=== PATIENT | male | born 1995 | race Caucasian/White ===

== ENCOUNTER 2017-08-08 16:13 | Emergency (ER) | payer SELFPAY ==
[2017-08-08 16:30] VITALS: RESP 16; TEMP 98; O2SAT 99
[2017-08-08] MEDS ORDERED: DIAZEPAM 5MG/ML SOL IM ONE (16:36)
[2017-08-08] MEDS ORDERED: KETOROLAC TROMETHAMINE 30 MG/ML SOL IM ONE (16:36)
[2017-08-08] MEDS ORDERED: KETOROLAC TROMETHAMINE 30 MG/ML SOL ONE (16:39)
[2017-08-08] MEDS ORDERED: CYCLOBENZAPRINE 10 MG TAB ONE (16:39)
[2017-08-08] MEDS ORDERED: CYCLOBENZAPRINE 10 MG TAB PO ONE (16:46)
[2017-08-08 19:44] VITALS: BP 132/90; PULSE 68
== END 2017-08-08 18:25 | disposition home or self-care (01) | DRG 563 ==
LOC: ED 16:13
DX: S39.012A Strain of muscle, fascia and tendon of lower back, initial encounter (principal); X50.0XXA Overexertion from strenuous movement or load, initial encounter
CPT/HCPCS: 72131; 99283; J1885

== ENCOUNTER 2017-08-11 | Emergency (ER) | payer SELFPAY ==
[2017-08-11] MEDS ORDERED: LORAZEPAM 0.5 MG TAB PO ONE ×3 (00:37→03:46)
[2017-08-11] MEDS ORDERED: LORAZEPAM 0.5 MG TAB ONE ×3 (00:40→03:47)
[2017-08-11 01:45] LABS: APPEARANCE,URINE Clear; BILIRUBIN,URINE NEGATIVE (NEGATIVE); COLOR,URINE Light yellow; GLUCOSE, URINE (UA) NEGATIVE (NEGATIVE); KETONES,URINE TRACE (NEGATIVE); LEUKOCYTE ESTERASE ,URINE TRACE (NEGATIVE); NITRATE,URINE NEGATIVE (NEGATIVE); OCCULT BLOOD,URINE NEGATIVE (NEG-TRACE); PH,URINE 5.5; UROBILINOGEN,URINE 0.2 (0.2-1.0 EU)
[2017-08-11 01:51] VITALS: BP 122/62; PULSE 122; RESP 18; O2SAT 96
[2017-08-11 01:54] LABS: HEMATOCRIT 49 % (39-53); MEAN CORPUSCULAR HGB CONC 35.5 gm/dl (32.0-36.0); MEAN CORPUSCULAR VOLUME 90 fL (80-100)
[2017-08-11 01:58] LABS: ALBUMIN 4.6 gm/dl (3.4-5.0); CALCIUM 9.1 mg/dl (8.5-10.1); POTASSIUM 4.5 mMol/L (3.5-5.1); THYROID STIMULATING HORMONE 2.002 uIU/ml (0.358-3.740)
[2017-08-11 02:03] LABS: BASOPHILS % (MANUAL) 0 % (0-3); EOSINOPHILS % (MANUAL) 0 % (0-9); LYMPHOCYTES % (MANUAL) 14 % (10-50); NORMAL RBCS PRESENT
[2017-08-11 02:07] LABS: AMPHETAMINES NEGATIVE (NEGATIVE); METHADONE NEGATIVE (NEGATIVE); OPIATES(OP13) NEGATIVE (NEGATIVE); OXYCODONE(OXY) NEGATIVE (NEGATIVE); PROPOXYPHENE(PPX) NEGATIVE (NEGATIVE); RBC,URINE 0-2 (0-3AV/HPF); TRICYCLIC ANTIDEPRESSANTS NEGATIVE (NEGATIVE); WBC,URINE 0-2 (0-5AV/HPF)
[2017-08-11 02:09] VITALS: TEMP 97.9
[2017-08-11] MEDS ORDERED: DIPHENHYDRAMINE 25 MG CAP PO ONE (03:46)
[2017-08-11] MEDS ORDERED: DIPHENHYDRAMINE 25 MG CAP ONE (03:47)
== END 2017-08-11 07:29 | disposition short-term general hospital (02) | DRG 880 ==
LOC: ED → SUPCPDRO → ED 07:29
DX: R45.851 Suicidal ideations (principal); F41.9 Anxiety disorder, unspecified; R05 Cough
CPT/HCPCS: 71020; 80053; 80305; 80307; 81001; 84443; 85007; 85027; 99283; 99284